=== PATIENT | female | born 1965 | race Caucasian/White ===

== ENCOUNTER 2020-06-23 15:39 | Inpatient (IN) | payer OTHER ==
[~2020-06-23] VITALS: Ht 157.5 cm; Wt 62.6 kg
[~2020-06-23 15:39] MED LIST: CELEBREX100 MG PO; CONEX TABLET1 EACH PO; OSEL75CA PO; TUSICOF LIQUID120 ML PO
[2020-06-27] MEDS ORDERED: PEPCID AC20 MG PO (17:46)
[2020-06-27] MEDS ORDERED: CIPRO500 MG PO (17:46)
[2020-06-27] MEDS ORDERED: FLAGYL500MG PO (17:46)
[2020-06-27] MEDS ORDERED: INTESTINEX680 M1 PO (17:46)
== END 2020-06-27 20:50 | disposition home or self-care (01) | DRG 392 ==
LOC: ER 15:39 → SURG 06-24 01:28
PROVIDERS: ADMIT Internal Medicine; ATTEND Internal Medicine
PROC: BW21Y0Z Computerized Tomography (CT Scan) of Abdomen and Pelvis using Other Contrast, Unenhanced and Enhanced (ICD-10-PCS; principal; 2020-06-24)
DX: K57.32 Diverticulitis of large intestine without perforation or abscess without bleeding (principal); R50.9 Fever, unspecified; K76.0 Fatty (change of) liver, not elsewhere classified; R10.32 Left lower quadrant pain; Z03.818 Encounter for observation for suspected exposure to other biological agents ruled out

== ENCOUNTER 2022-12-04 08:09 | Outpatient (CLI) | payer OTHER ==
[~2022-12-04 08:09] MED LIST changes: +CIPRO500 MG PO; +FLAGYL500MG PO; +INTESTINEX680 M1 PO; +PEPCID AC20 MG PO
== END 2022-12-04 08:20 | disposition home or self-care (01) ==
LOC: TOM 08:09
PROVIDERS: ATTEND Internal Medicine
DX: K57.32 Diverticulitis of large intestine without perforation or abscess without bleeding (principal)

== ENCOUNTER 2023-02-02 16:10 | Emergency (ER) | payer OTHER ==
[~2023-02-02] VITALS: Ht 157.5 cm; Wt 54.4 kg
== END 2023-02-02 20:35 | disposition home or self-care (01) ==
LOC: ER 16:10
DX: R53.81 Other malaise (principal); R09.3 Abnormal sputum; R05.8 Other specified cough; J44.9 Chronic obstructive pulmonary disease, unspecified; J45.998 Other asthma; Z20.822 Contact with and (suspected) exposure to COVID-19

== ENCOUNTER 2023-10-04 05:30 | Day surgery (SDC) | payer OTHER ==
[2023-10-01 11:23] LABS: PH,URINE 5.5 (5.0-8.0); URINE APPEARANCE Clear; URINE BILIRRUBIN Negative (NEGATIVE); URINE BLOOD Small; URINE COLOR Yellow; URINE GLUCOSE Negative (NEGATIVE); URINE LEUKOCYTE Small; URINE NITRATE Negative; URINE PROTEIN Trace (NEGATIVE); URINE UROBILINOGEN 0.2 E.U./dl
[2023-10-01 11:28] LABS: URINE EPITHELIAL CELLS 30.1 uL (0.0-38.8); URINE RBC 72.4 uL (0.0-20.8); URINE WBC 93.1 uL (0.0-23.2)
[2023-10-01 11:31] LABS: HEMATOCRIT 41.9 % (36.0-45.00); MEAN CELL VOLUME 97.4 fL (80.00-100.00); MEAN CORPUSCULAR HEMOGLOBIN 32.5 pg (27.00-32.0); MEAN CORPUSCULAR HGB CONC 33.4 g/dl (32.0-36.0); PLATELET COUNT 266 K/uL (150-450); RED CELL DISTRIBUTION WIDTH 14.7 % (11.5-14.5)
[2023-10-01 11:54] LABS: INR 0.96; PARTIAL THROMBOPLASTIN TIME 29.5 SECONDS (22.0-34.0); PROTHROMBIN TIME 10.1 SECONDS (9.0-11.5)
[2023-10-01 11:57] LABS: ALBUMIN 4.1 gm/dL (3.4-5.0); CALCIUM 9.6 mg/dL (8.5-10.1); CREATININE SERUM 0.92 mg/dL (0.55-1.02); GFR 62.27; PHOSPHOROUS 3.8 mg/dL (2.5-4.9); POTASSIUM 4.31 mEq/L (3.5-5.1)
[2023-10-04] MEDS ORDERED: TRAM1TAB98 PO (08:39)
== END 2023-10-04 11:30 | disposition home or self-care (01) ==
LOC: CIR.AMB 05:30
PROVIDERS: ATTEND Surgery
DX: R15.9 Full incontinence of feces (principal); K57.32 Diverticulitis of large intestine without perforation or abscess without bleeding; R10.32 Left lower quadrant pain; I10 Essential (primary) hypertension; Z20.822 Contact with and (suspected) exposure to COVID-19
CPT/HCPCS: 64581; 95972; C1778

== ENCOUNTER 2023-10-18 05:45 | Day surgery (SDC) | payer OTHER ==
[~2023-10-18 05:45] MED LIST changes: +TRAM1TAB98 PO
== END 2023-10-18 16:10 | disposition home or self-care (01) ==
LOC: CIR.AMB 05:45
PROVIDERS: ATTEND Surgery
DX: R15.9 Full incontinence of feces (principal); K57.32 Diverticulitis of large intestine without perforation or abscess without bleeding; R10.32 Left lower quadrant pain; Z80.1 Family history of malignant neoplasm of trachea, bronchus and lung; Z20.822 Contact with and (suspected) exposure to COVID-19

== ENCOUNTER 2024-08-06 12:40 | Outpatient (CLI) | payer OTHER | END 2024-08-06 13:14 | disposition home or self-care (01) | LOC: TOM 12:40 | PROVIDERS: ATTEND Internal Medicine Pulmonary Disease | DX: J43.2 Centrilobular emphysema (principal); R06.02 Shortness of breath; Z87.891 Personal history of nicotine dependence ==